=== PATIENT | female | born 1990 | race Caucasian/White ===

== ENCOUNTER 2018-05-07 07:38 | Day surgery (SDC) | END 2018-05-07 15:05 | disposition home or self-care (01) ==

== ENCOUNTER 2018-05-09 22:28 | Emergency (ER) | END 2018-05-10 01:05 | disposition home or self-care (01) ==

== ENCOUNTER 2018-05-18 01:33 | Inpatient (IN) | END 2018-05-19 16:50 | disposition home health service (06) | DRG 920 ==

== ENCOUNTER 2018-06-04 20:39 | Emergency (ER) | END 2018-06-04 22:58 | disposition home or self-care (01) ==